=== PATIENT | female | born 1970 | race African-American/Black ===

== ENCOUNTER 2021-09-20 08:16 | Emergency (ER) | payer MEDICAID ==
[~2021-09-20] VITALS: Ht 162.6 cm; Wt 77.0 kg
[2021-09-20] MEDS ORDERED: KETOROLAC 60MG/2ML VIAL IM ONE (09:00)
[2021-09-20] MEDS ORDERED: IBUP-2028 MT (11:00)
[2021-09-20 11:18] VITALS: BP 158/78
== END 2021-09-20 11:19 | disposition home or self-care (01) ==
LOC: ER 08:16
DX: M54.2 Cervicalgia (principal); M54.9 Dorsalgia, unspecified; I10 Essential (primary) hypertension; V43.52XA Car driver injured in collision with other type car in traffic accident, initial encounter; Y93.89 Activity, other specified; Y92.410 Unspecified street and highway as the place of occurrence of the external cause
CPT/HCPCS: 72100; 72125; 73010; 96372; 99284; J1885

== ENCOUNTER 2023-02-10 07:10 | Emergency (ER) | payer MEDICAID, OTHER ==
[~2023-02-10] VITALS: Ht 162.6 cm; Wt 70.3 kg
[~2023-02-10 07:10] MED LIST: IBUP-2028 MT
[2023-02-10 07:30] VITALS: BP 183/81; PULSE 60; RESP 16; TEMP 98.5; O2SAT 100
== END 2023-02-10 08:52 | disposition home or self-care (01) ==
LOC: ER 07:10
DX: I10 Essential (primary) hypertension (principal); Z98.890 Other specified postprocedural states
CPT/HCPCS: 99281